=== PATIENT | female | born 1995 | race Caucasian/White ===

== ENCOUNTER 2017-10-24 11:49 | Outpatient (CLI) | payer MEDICAID | END 2017-10-24 14:30 | disposition home or self-care (01) | LOC: OBT 11:49 → L-D 11:49 → OBT 14:30 | DX: O26.843 Uterine size-date discrepancy, third trimester (principal); Z3A.39 39 weeks gestation of pregnancy | CPT/HCPCS: 76815; 76818 ==

== ENCOUNTER 2017-10-27 12:24 | Inpatient (IN) | payer MEDICAID ==
[2017-10-27] MEDS ORDERED: OXYTOCIN 30 UNITS/LR 500 ML IV ×3 (13:00→16:00)
[2017-10-27] MEDS: LACTATED RINGER'S 1,000 ML IV ×2 (13:43→21:05)
[2017-10-27 14:00] LABS: ADD MAN DIFF? NO
[2017-10-27 14:03] LABS: BASOPHILS % 0.3 % (0.0-2.0); EOSINOPHILS # 0.1 10^3/ul (0.0-0.5); EOSINOPHILS % 1.2 % (0.0-7.0); HEMATOCRIT 35.5 % (37.0-47.0); HEMOGLOBIN 11.5 g/dl (12.0-16.0); LYMPHOCYTES # 2.7 10^3/ul (0.8-2.9); LYMPHOCYTES % 25.2 % (18.0-55.0); MEAN CORPUSCULAR HEMOGLOBIN 27.3 pg (29.0-33.0); MEAN CORPUSCULAR HGB CONC 32.4 g/dl (32.0-37.0); MEAN CORPUSCULAR VOLUME 84.1 fl (72.0-104.0); MEAN PLATELET VOLUME 11.7 fl (7.4-10.4); MONOCYTE # 0.8 10^3/ul (0.3-0.9); MONOCYTES % 7.5 % (0.0-13.0); NEUTROPHIL # 6.8 10^3/ul (1.6-7.5); NEUTROPHILS % 64.2 % (30.0-74.0); PLATELET COUNT 227 10^3/UL (140-415); RED BLOOD COUNT 4.22 10^6/ul (4.20-5.40); RED CELL DISTRIBUTION WIDTH 14.4 % (11.5-14.5)
[2017-10-27 14:03] LABS: WHITE BLOOD COUNT 10.6 10^3/ul (4.8-10.8)
[2017-10-27 14:23] LABS: PARTIAL THROMBOPLASTIN TIME 26.7 Sec (25.0-35.0); PROTIME 12.2 Sec (11.9-14.9)
[2017-10-27 14:59] LABS: RAPID PLASMA REAGIN NONREACTIVE (NR)
[2017-10-27] MEDS: DINOPROSTONE 10 MG VAG SUPP VAG (15:36)
[2017-10-27] MEDS ORDERED: IBUPROFEN 600 MG TAB PO (16:00)
[2017-10-27] MEDS ORDERED: CARBOPROST 250 MCG INJ IM (16:00)
[2017-10-27] MEDS ORDERED: LACTATED RINGER'S 1,000 ML IV* (16:00)
[2017-10-27] MEDS ORDERED: IBUPROFEN 600 MG TAB GTB (18:00)
[2017-10-28] MEDS: LACTATED RINGER'S 1,000 ML IV ×3 (05:21→19:14)
[2017-10-28] MEDS ORDERED: OXYTOCIN 30 UNITS/LR 500 ML IV ×2 (06:30)
[2017-10-28] MEDS ORDERED: BUTORPHANOL 1 MG INJ IV (08:00)
[2017-10-28] MEDS: BUTORPHANOL 2 MG INJ IV (08:09)
[2017-10-28] MEDS: DINOPROSTONE 10 MG VAG SUPP VAG ×2 (09:00→17:51)
[2017-10-28] MEDS ORDERED: FENTAnyl 2MCG/ML-ROPIV 0.2% 100 ML (16:47)
[2017-10-28] MEDS ORDERED: NALOXONE (0.4 MG/ML) INJ IV (17:00)
[2017-10-28] MEDS ORDERED: DIPHENHYDRAMINE 50 MG INJ IV (17:00)
[2017-10-28] MEDS: ONDANSETRON 4 MG INJ IV (23:13)
[2017-10-28] MEDS: FENTAnyl 2MCG/ML-ROPIV 0.2% 100 ML BAG EPI (23:28)
[2017-10-29] MEDS: LACTATED RINGER'S 1,000 ML IV ×5 (00:32→21:12)
[2017-10-29] MEDS: ACETAMINOPHEN 325 MG TAB PO (01:47)
[2017-10-29] MEDS: FENTAnyl 2MCG/ML-ROPIV 0.2% 100 ML BAG EPI ×2 (08:57→21:06)
[2017-10-29] MEDS: OXYTOCIN 30 UNITS/LR 500 ML IV (09:00)
[2017-10-30] MEDS: LACTATED RINGER'S 1,000 ML IV (00:31)
[2017-10-30] MEDS: MISOPROSTOL 200 MCG TAB PR ×2 (03:49→03:56)
[2017-10-30] MEDS: METHYLERGONOVINE 0.2 MG INJ IM (03:50)
[2017-10-30] MEDS: OXYTOCIN 30 UNITS/LR 500 ML IVPB (03:55)
[2017-10-30] MEDS ORDERED: DEXTROSE 5%-LR 1,000 ML IV (04:25)
[2017-10-30] MEDS: LIDOCAINE 1% (MPF) 30 ML INJ INJ (04:26)
[2017-10-30] MEDS ORDERED: HYDROCODONE/APAP (5/325) TAB PO (04:30)
[2017-10-30] MEDS ORDERED: OXYTOCIN 30 UNITS/LR 500 ML IV (04:30)
[2017-10-30] MEDS ORDERED: CARBOPROST 250 MCG INJ IM (04:30)
[2017-10-30] MEDS ORDERED: DIPHENHYDRAMINE 50 MG INJ IV (04:30)
[2017-10-30] MEDS ORDERED: METHYLERGONOVINE 0.2 MG INJ IM (04:30)
[2017-10-30] MEDS ORDERED: GENTAMICIN 80 MG/NS (PMX) 50 ML IVPB (04:30)
[2017-10-30] MEDS ORDERED: ZOLPIDEM 5 MG TAB PO (04:30)
[2017-10-30] MEDS ORDERED: MISOPROSTOL 200 MCG TAB PR (04:30)
[2017-10-30] MEDS ORDERED: ONDANSETRON 4 MG INJ IV (04:30)
[2017-10-30] MEDS: ACETAMINOPHEN 500 MG TAB PO (04:47)
[2017-10-30] MEDS: AMPICILLIN 2 GM/NS (PMX) 100 ML IVPB ×4 (04:47→22:17)
[2017-10-30] MEDS: GENTAMICIN 80 MG/NS (PMX) 50 ML IVPB ×3 (05:47→20:37)
[2017-10-30 08:12] LABS: LACTATE DEHYDROGENASE 629 IU/L (313-618)
[2017-10-30] MEDS: IBUPROFEN 600 MG TAB PO ×3 (08:24→18:00)
[2017-10-30] MEDS: LACTATED RINGER'S 1,000 ML IV* ×3 (09:35→20:25)
[2017-10-30] MEDS: WITCH HAZEL/GLYCERIN PAD PR (11:14)
[2017-10-30] MEDS: LANOLIN 7 GM TUBE TOP (11:14)
[2017-10-30] MEDS: DIBUCAINE 1% 30 GM OINT PR (11:14)
[2017-10-30] MEDS: BENZOCAINE 20% 56 ML SPRAY TOP (11:14)
[2017-10-30] MEDS: SENNA/DOCUSATE NA (8.6MG/50MG) TAB PO (22:12)
[2017-10-31] MEDS: IBUPROFEN 600 MG TAB PO ×5 (00:31→23:31)
[2017-10-31] MEDS: LACTATED RINGER'S 1,000 ML IV* (04:25)
[2017-10-31] MEDS: GENTAMICIN 80 MG/NS (PMX) 50 ML IVPB ×2 (04:41→12:30)
[2017-10-31] MEDS: AMPICILLIN 2 GM/NS (PMX) 100 ML IVPB ×2 (05:28→11:05)
[2017-10-31 09:23] LABS: ADD MAN DIFF? NO
[2017-10-31 09:26] LABS: BASOPHIL # 0.1 10^3/ul (0.0-0.1); BASOPHILS % 0.5 % (0.0-2.0); EOSINOPHILS # 0.2 10^3/ul (0.0-0.5); EOSINOPHILS % 1.6 % (0.0-7.0); HEMATOCRIT 32.4 % (37.0-47.0); HEMOGLOBIN 10.3 g/dl (12.0-16.0); LYMPHOCYTES # 2.7 10^3/ul (0.8-2.9); LYMPHOCYTES % 21.2 % (18.0-55.0); MEAN CORPUSCULAR HEMOGLOBIN 27.1 pg (29.0-33.0); MEAN CORPUSCULAR HGB CONC 31.8 g/dl (32.0-37.0); MEAN CORPUSCULAR VOLUME 85.3 fl (72.0-104.0); MEAN PLATELET VOLUME 11.5 fl (7.4-10.4); MONOCYTE # 0.6 10^3/ul (0.3-0.9); MONOCYTES % 4.4 % (0.0-13.0); NEUTROPHIL # 9.2 10^3/ul (1.6-7.5); NEUTROPHILS % 71.4 % (30.0-74.0); PLATELET COUNT 222 10^3/UL (140-415); RED CELL DISTRIBUTION WIDTH 15.2 % (11.5-14.5)
[2017-10-31 09:26] LABS: WHITE BLOOD COUNT 12.8 10^3/ul (4.8-10.8)
[2017-10-31] MEDS: ACETAMINOPHEN 325 MG TAB PO (19:57)
[2017-11-01] MEDS: IBUPROFEN 600 MG TAB PO ×2 (05:55→12:34)
[2017-11-01] MEDS: LACTATED RINGER'S 1,000 ML IV* (07:20)
[2017-11-01] MEDS: MEASLES,MUMPS,RUBELLA VACCINE INJ SC* (09:00)
[2017-11-01] MEDS: DIPHTH/TET/ACEL PERTUSS (ADULT) 0.5 ML VIAL IM* (12:37)
== END 2017-11-01 18:21 | disposition home or self-care (01) | DRG 775 ==
LOC: L-D 12:24 → PP1 10-30 08:39
PROVIDERS: Obstetrics & Gynecology
PROC: 3E0P7VZ Introduction of Hormone into Female Reproductive, Via Natural or Artificial Opening (ICD-10-PCS; 2017-10-27)
PROC: 10907ZC Drainage of Amniotic Fluid, Therapeutic from Products of Conception, Via Natural or Artificial Opening (ICD-10-PCS; 2017-10-29)
PROC: 10E0XZZ Delivery of Products of Conception, External Approach (ICD-10-PCS; principal; 2017-10-30)
PROC: 0KQM0ZZ Repair Perineum Muscle, Open Approach (ICD-10-PCS; 2017-10-30)
PROC: 0W8NXZZ Division of Female Perineum, External Approach (ICD-10-PCS; 2017-10-30)
PROC: 3E0234Z Introduction of Serum, Toxoid and Vaccine into Muscle, Percutaneous Approach (ICD-10-PCS; 2017-11-01)
DX: O71.4 Obstetric high vaginal laceration alone (principal); Z37.0 Single live birth; O41.1230 Chorioamnionitis, third trimester, not applicable or unspecified; Z3A.40 40 weeks gestation of pregnancy; Z23 Encounter for immunization
CPT/HCPCS: 62319; 76816; 83615; 85025; 85610; 85730; 86592; 86850; 86900; 86901; 90715; 99464